=== PATIENT | male | born 1950 | race Caucasian/White ===

== ENCOUNTER → 2018-10-08 | Outpatient (CLI) | payer MEDICARE ==
[~2018-10-08] MED LIST: ATOR-2 PO; INSU100V5 SQ-INSULIN; INSU100V8 SQ; LISI-170 PO; METF500T17 PO; OMEP20TA9 PO; ONDA4TAB7 PO
== END | disposition home or self-care (01) ==
LOC: PETCFH 08:46
PROVIDERS: ATTEND Internal Medicine Hematology & Oncology
DX: C25.0 Malignant neoplasm of head of pancreas (principal); R91.1 Solitary pulmonary nodule; K86.9 Disease of pancreas, unspecified; M47.816 Spondylosis without myelopathy or radiculopathy, lumbar region
CPT/HCPCS: 78815; A9552

== ENCOUNTER 2018-10-21 08:03 | Day surgery (SDC) | payer MEDICARE ==
[~2018-10-21] VITALS: Ht 152.4 cm; Wt 47.3 kg
[2018-10-21] MEDS ORDERED: LACTATED RINGERS 1,000 ML IV SCH (08:40)
[2018-10-21] MEDS ORDERED: MULT-658 PO (08:44)
[2018-10-21] MEDS ORDERED: INSU100I13 PO (08:44)
[2018-10-21] MEDS ORDERED: CYAN10005 PO (08:44)
[2018-10-21 08:46] VITALS: BP 144/73
[2018-10-21 08:57] VITALS: BP 144/73
[2018-10-21] MEDS ORDERED: SUCCINYLCHOLINE 20 MG/ML, 10ML ONE (12:35)
[2018-10-21] MEDS ORDERED: PROPOFOL 10 MG/ML, 20ML ONE (12:35)
[2018-10-21] MEDS ORDERED: ROCURONIUM 10 MG/ML,10ML ONE (12:35)
[2018-10-21] MEDS ORDERED: OMNIPAQUE 350 MG/ML, 50 ML BOTTLE ONE (13:23)
== END 2018-10-21 14:30 | disposition home or self-care (01) ==
LOC: OUT 08:03
PROVIDERS: ATTEND Internal Medicine
DX: K83.1 Obstruction of bile duct (principal); C25.9 Malignant neoplasm of pancreas, unspecified; E11.9 Type 2 diabetes mellitus without complications; I10 Essential (primary) hypertension; E78.5 Hyperlipidemia, unspecified; K21.9 Gastro-esophageal reflux disease without esophagitis; Z79.84 Long term (current) use of oral hypoglycemic drugs
CPT/HCPCS: 43264; 43276; 74328; 82962; 93005; C1725; C1874; J0330; J2704; J7120; Q9967

== ENCOUNTER 2018-10-22 08:56 | Day surgery (SDC) | payer MEDICARE ==
[~2018-10-22] VITALS: Ht 152.4 cm; Wt 47.6 kg
[~2018-10-22 08:56] MED LIST changes: +CYAN10005 PO; +FENTANYL PF 100 MCG/2ML ONE; +INSU100I13 PO; +MULT-658 PO
[2018-10-22] MEDS ORDERED: LACTATED RINGERS 1,000 ML IV SCH (09:39)
[2018-10-22 09:44] VITALS: BP 145/73
[2018-10-22] MEDS ORDERED: MIDAZOLAM 1 MG/ML, 2ML ONE (10:01)
[2018-10-22] MEDS ORDERED: FENTANYL PF 250 MCG/5ML ONE (10:01)
[2018-10-22] MEDS ORDERED: SODIUM CHLORIDE 0.9% PF 10ML ONE (10:02)
[2018-10-22] MEDS ORDERED: CEFAZOLIN 1,000 MG ONE ×2 (10:02)
[2018-10-22] MEDS ORDERED: PROPOFOL 10 MG/ML, 20ML ONE (10:03)
[2018-10-22] MEDS ORDERED: BUPIVACAINE/PF-EPI 0.5% 1:200K ONE (10:35)
[2018-10-22] MEDS ORDERED: HEPARIN 5,000 UNITS/ML, 1ML ONE (10:35)
[2018-10-22] MEDS ORDERED: HEPARIN 1,000 UNITS/ML, 10ML ONE (10:35)
[2018-10-22] MEDS ORDERED: HYDROmorphone 2 MG/ML, 1ML IVPush PRN (11:00)
[2018-10-22] MEDS ORDERED: PROMETHAZINE 12.5 MG SUPP PR PRN (11:00)
[2018-10-22] MEDS ORDERED: FENTANYL PF 100 MCG/2ML IV PRN (11:00)
[2018-10-22] MEDS ORDERED: MEPERIDINE/PF 25MG/0.5ML IVPush PRN (11:00)
[2018-10-22] MEDS ORDERED: ONDANSETRON 2MG/ML, 2ML IV PRN (11:00)
[2018-10-22] MEDS ORDERED: PROMETHAZINE 25 MG SUPP PR PRN (11:00)
[2018-10-22] MEDS ORDERED: PROMETHAZINE 25 MG/ML, 1ML IV PRN (11:00)
[2018-10-22] MEDS ORDERED: ACETAMINOPHEN 325 MG TABLET PO PRN (11:00)
[2018-10-22] MEDS ORDERED: hydrALAzine 20 MG/ML, 1ML IV PRN (11:00)
[2018-10-22] MEDS ORDERED: MORPHINE SULFATE 4 MG/ML, 1ML IVPush PRN (11:00)
[2018-10-22] MEDS ORDERED: PROMETHAZINE 25 MG/ML, 1ML IM PRN ×2 (11:00)
[2018-10-22] MEDS ORDERED: LABETALOL 5MG/ML, 20ML IV PRN (11:00)
[2018-10-22] MEDS ORDERED: ONDANSETRON ODT 8 MG PO PRN (11:00)
[2018-10-22] MEDS ORDERED: OXYcodone 5 MG/5 ML ORAL.SOL UDC PO PRN (11:00)
[2018-10-22] MEDS ORDERED: PHENYLEPHRINE 10 MG/ML ONE (11:28)
== END 2018-10-22 14:20 | disposition home or self-care (01) ==
LOC: OUT 08:56
PROVIDERS: ATTEND Surgery
DX: Z45.2 Encounter for adjustment and management of vascular access device (principal); C25.9 Malignant neoplasm of pancreas, unspecified; I10 Essential (primary) hypertension; E11.9 Type 2 diabetes mellitus without complications; K21.9 Gastro-esophageal reflux disease without esophagitis; E78.5 Hyperlipidemia, unspecified; Z79.4 Long term (current) use of insulin; Z79.899 Other long term (current) drug therapy; Z72.89 Other problems related to lifestyle; Z80.3 Family history of malignant neoplasm of breast
CPT/HCPCS: 36561; 77001; 82962; C1788; J0690; J1644; J2250; J2370; J2704; J3010

== ENCOUNTER 2018-11-12 08:00 | Inpatient (IN) | payer MEDICARE ==
[~2018-11-12] VITALS: Ht 152.4 cm; Wt 46.7 kg
[~2018-11-12 08:00] MED LIST changes: -FENTANYL PF 100 MCG/2ML ONE; -INSU100I13 PO; +INSU100I13 SC
[2018-11-13 09:29] VITALS: BP 137/71
[2018-11-13] MEDS ORDERED: ACETAMINOPHEN 325 MG TABLET PO PRN (09:30)
[2018-11-13] MEDS ORDERED: PLEASE ENTER HEIGHT MC SCH (09:30)
[2018-11-13 09:32] LABS: BASOPHILS # (AUTO) 0.01 x10^3/uL (0-0.1); BASOPHILS % (AUTO) 0 % (0-1); EOSINOPHILS # (AUTO) 0.04 x10^3/uL (0-0.4); EOSINOPHILS % (AUTO) 1 % (1-7); LYMPHOCYTES # (AUTO) 1.22 x10^3/uL (1-3.4); LYMPHOCYTES % (AUTO) 18 % (22-44); MD NO; MEAN CORPUSCULAR HEMOGLOBIN 29.7 pg (27.5-34.5); MEAN CORPUSCULAR HGB CONC 31.9 g/dL (33.2-36.2); MEAN PLATELET VOLUME 7.6 fL (7.4-10.4); MONOCYTES # (AUTO) 0.54 x10^3/uL (0.2-0.8); MONOCYTES % (AUTO) 8 % (2-9); NEUTROPHILS # (AUTO) 4.88 x10^3/uL (1.8-6.8); NEUTROPHILS % (AUTO) 73 % (42-75); PLATELET COUNT 228 x10^3/uL (130-400); RED BLOOD COUNT 4.31 x10^6/uL (4.38-5.82); RED CELL DISTRIBUTION WIDTH 13.7 % (9.4-14.8)
[2018-11-13 09:42] LABS: ALANINE AMINOTRANSFERASE 34 U/L (12-78); ALBUMIN 3.1 g/dL (3.4-5.0); ANION GAP 2 mmol/L (5-15); CALCIUM 8.4 mg/dL (8.5-10.1); CHLORIDE 102 mmol/L (98-107)
[2018-11-13 09:45] LABS: ALKALINE PHOSPHATASE 93 U/L (45-117); BILIRUBIN,TOTAL 0.6 mg/dL (0.2-1.0); TOTAL PROTEIN 6.1 g/dL (6.4-8.2)
[2018-11-13] MEDS ORDERED: ONDANSETRON 16 MG, DEXAMETHASONE 10 MG in SODIUM CHLORIDE 0.9% 50 ML IVPB ONE (10:30)
[2018-11-13] MEDS ORDERED: PROCHLORPERAZINE 10MG TABLET PO PRN (10:30)
[2018-11-13] MEDS ORDERED: DEXTROSE 5% IVPB ONE (10:30)
[2018-11-13] MEDS ORDERED: DEXAMETHASONE IVPB ONE (10:30)
[2018-11-13] MEDS ORDERED: PROCHLORPERAZINE 5 MG/ML, 2ML IV PRN (10:30)
[2018-11-13] MEDS ORDERED: FOSAPREPITANT 150 MG in SODIUM CHLORIDE 0.9% 145 ML IV ONE (10:30)
[2018-11-13] MEDS ORDERED: ONDANSETRON IVPB ONE (10:30)
[2018-11-13] MEDS ORDERED: INSULIN LISPRO 100 UNITS/ML, PEN SQ-INSULIN SCH (11:00)
[2018-11-13] MEDS ORDERED: DEXTROSE 5% IV ONE ×2 (11:00→13:00)
[2018-11-13] MEDS ORDERED: OXALIPLATIN IV ONE (11:00)
[2018-11-13] MEDS: INSULIN LISPRO 100 UNITS/ML, PEN SQ-INSULIN SCH ×3 (12:29→21:38)
[2018-11-13] MEDS ORDERED: ATROPINE 0.4 MG/ML, 1ML IVPush PRN (13:00)
[2018-11-13] MEDS ORDERED: IRINOTECAN HCL IV ONE (13:00)
[2018-11-13 13:04] VITALS: BP 114/65
[2018-11-13] MEDS ORDERED: SODIUM CHLORIDE 0.9% IV SCH (14:30)
[2018-11-13] MEDS ORDERED: FLUOROURACIL IV SCH (14:30)
[2018-11-13] MEDS: metFORMIN 500 MG TABLET PO SCH (16:37)
[2018-11-13 19:06] VITALS: BP 113/67
[2018-11-13] MEDS: INSULIN GLARGINE 100 UNITS/ML, PEN SQ-INSULIN SCH (21:39)
[2018-11-13] MEDS ORDERED: ONDANSETRON ODT 8 MG PO PRN (22:30)
[2018-11-13] MEDS ORDERED: ONDANSETRON 2MG/ML, 2ML IV PRN (22:30)
[2018-11-14 01:20] VITALS: BP 152/67
[2018-11-14 06:59] VITALS: BP 112/63
[2018-11-14] MEDS: metFORMIN 500 MG TABLET PO SCH ×2 (07:46→16:38)
[2018-11-14] MEDS: INSULIN LISPRO 100 UNITS/ML, PEN SQ-INSULIN SCH ×4 (07:46→21:22)
[2018-11-14 12:59] VITALS: BP 117/58
[2018-11-14] MEDS ORDERED: SODIUM CHLORIDE 0.9% IV ONE (16:00)
[2018-11-14] MEDS ORDERED: FLUOROURACIL IV ONE (16:00)
[2018-11-14 20:06] VITALS: BP 128/69
[2018-11-14] MEDS: INSULIN GLARGINE 100 UNITS/ML, PEN SQ-INSULIN SCH (21:22)
[2018-11-15 01:35] VITALS: BP 126/65
[2018-11-15 06:43] VITALS: BP 127/61
[2018-11-15] MEDS: INSULIN LISPRO 100 UNITS/ML, PEN SQ-INSULIN SCH ×3 (07:00→16:22)
[2018-11-15] MEDS ORDERED: PROC10TA78 PO (08:29)
[2018-11-15] MEDS ORDERED: ONDA8TAB9 PO (08:43)
[2018-11-15] MEDS: metFORMIN 500 MG TABLET PO SCH ×2 (08:48→16:26)
[2018-11-15 13:15] VITALS: BP 115/55
== END 2018-11-15 18:48 | disposition home or self-care (01) | DRG 847 ==
LOC: 3NE 11-13 08:36 → 3NW 11-13 09:30
PROVIDERS: ADMIT Internal Medicine Hematology & Oncology; ATTEND Internal Medicine Hematology & Oncology
DX: Z51.11 Encounter for antineoplastic chemotherapy (principal); C25.9 Malignant neoplasm of pancreas, unspecified; E11.65 Type 2 diabetes mellitus with hyperglycemia; I10 Essential (primary) hypertension; K59.00 Constipation, unspecified; Z79.84 Long term (current) use of oral hypoglycemic drugs; Z80.3 Family history of malignant neoplasm of breast; Z85.07 Personal history of malignant neoplasm of pancreas
CPT/HCPCS: 36415; 80053; 82947; 82962; 85025; G0378; J1100; J1453; J2405; J7060; J9206; J1815; J7030; J9190; J9263

== ENCOUNTER 2018-11-27 08:00 | Inpatient (IN) | payer MEDICARE ==
[~2018-11-27] VITALS: Ht 144.8 cm; Wt 46.6 kg
[~2018-11-27 08:00] MED LIST changes: +ONDA8TAB9 PO; +PROC10TA78 PO
[2018-11-27 09:20] VITALS: BP 133/56
[2018-11-27 09:36] LABS: BASOPHILS # (AUTO) 0.02 x10^3/uL (0-0.1); BASOPHILS % (AUTO) 1 % (0-1); EOSINOPHILS # (AUTO) 0.08 x10^3/uL (0-0.4); EOSINOPHILS % (AUTO) 2 % (1-7); LYMPHOCYTES # (AUTO) 1.17 x10^3/uL (1-3.4); LYMPHOCYTES % (AUTO) 36 % (22-44); MD NO; MEAN CORPUSCULAR HEMOGLOBIN 30.3 pg (27.5-34.5); MEAN CORPUSCULAR HGB CONC 33.5 g/dL (33.2-36.2); MEAN CORPUSCULAR VOLUME 90.2 fL (81-97); MEAN PLATELET VOLUME 7.4 fL (7.4-10.4); MONOCYTES # (AUTO) 0.52 x10^3/uL (0.2-0.8); MONOCYTES % (AUTO) 16 % (2-9); NEUTROPHILS # (AUTO) 1.47 x10^3/uL (1.8-6.8); NEUTROPHILS % (AUTO) 45 % (42-75); PLATELET COUNT 337 x10^3/uL (130-400); RED BLOOD COUNT 4.23 x10^6/uL (4.38-5.82); RED CELL DISTRIBUTION WIDTH 13.5 % (9.4-14.8)
[2018-11-27 09:48] LABS: ALANINE AMINOTRANSFERASE 183 U/L (12-78); ALBUMIN 2.8 g/dL (3.4-5.0); ANION GAP 5 mmol/L (5-15); CALCIUM 8.9 mg/dL (8.5-10.1); CHLORIDE 96 mmol/L (98-107); CREATININE 0.81 mg/dL (0.7-1.3)
[2018-11-27 09:51] LABS: ALKALINE PHOSPHATASE 832 U/L (45-117); BILIRUBIN,TOTAL 1.1 mg/dL (0.2-1.0)
[2018-11-27] MEDS ORDERED: LIDOCAINE/PRILOCAINE CRM W/TEG 5GM TP ONE (10:00)
[2018-11-27] MEDS ORDERED: DEXTROSE 50%, 50ML SYRINGE IVPush PRN (10:00)
[2018-11-27] MEDS ORDERED: DEXTROSE 4 GM TAB.CHEW PO PRN (10:00)
[2018-11-27] MEDS ORDERED: GLUCAGON 1 MG IM PRN (10:00)
[2018-11-27] MEDS ORDERED: ATROPINE 0.4 MG/ML, 1ML IVPush PRN (11:00)
[2018-11-27] MEDS ORDERED: INSULIN REGULAR, HUMAN 100 UNIT/ML 3ML VIAL LOW DOSE SS SQ-INSULIN SCH (11:00)
[2018-11-27] MEDS: INSULIN REGULAR 100 UNITS/ML, 3ML VIAL SQ-INSULIN SCH ×3 (11:19→20:06)
[2018-11-27] MEDS: SODIUM CHLORIDE 0.9% 1,000 ML IV SCH (11:20)
[2018-11-27] MEDS ORDERED: DEXTROSE 5% IVPB ONE (11:30)
[2018-11-27] MEDS ORDERED: FOSAPREPITANT 150 MG in SODIUM CHLORIDE 0.9% 145 ML IV ONE (11:30)
[2018-11-27] MEDS ORDERED: PROCHLORPERAZINE 5 MG/ML, 2ML IV PRN (11:30)
[2018-11-27] MEDS ORDERED: ONDANSETRON IVPB ONE (11:30)
[2018-11-27] MEDS ORDERED: DEXAMETHASONE IVPB ONE (11:30)
[2018-11-27] MEDS ORDERED: PROCHLORPERAZINE 10MG TABLET PO PRN (11:30)
[2018-11-27] MEDS ORDERED: OXALIPLATIN IV ONE ×2 (12:00)
[2018-11-27] MEDS ORDERED: DEXTROSE 5% IV ONE ×4 (12:00→14:30)
[2018-11-27 14:13] VITALS: BP 108/66
[2018-11-27] MEDS ORDERED: IRINOTECAN HCL IV ONE ×2 (14:30)
[2018-11-27] MEDS: metFORMIN 500 MG TABLET PO SCH (15:54)
[2018-11-27] MEDS ORDERED: FLUOROURACIL IV SCH (16:30)
[2018-11-27] MEDS ORDERED: SODIUM CHLORIDE 0.9% IV SCH (16:30)
[2018-11-27] MEDS: FLUOROURACIL IV SCH (16:58)
[2018-11-27] MEDS: SODIUM CHLORIDE 0.9% IV SCH (16:58)
[2018-11-27 18:54] VITALS: BP 116/62
[2018-11-27] MEDS: INSULIN GLARGINE 100 UNITS/ML, PEN SQ-INSULIN SCH (20:07)
[2018-11-27] MEDS: SODIUM CHLORIDE FLUSH 10ML SYR IVF SCH ×2 (20:07→20:23)
[2018-11-27] MEDS ORDERED: ONDANSETRON ODT 8 MG PO PRN (23:30)
[2018-11-27] MEDS ORDERED: ONDANSETRON 2MG/ML, 2ML IV PRN (23:30)
[2018-11-28 02:00] VITALS: BP 148/61
[2018-11-28] MEDS: SODIUM CHLORIDE 0.9% 1,000 ML IV SCH ×2 (04:45→20:44)
[2018-11-28 06:44] VITALS: BP 118/49
[2018-11-28] MEDS: INSULIN REGULAR 100 UNITS/ML, 3ML VIAL SQ-INSULIN SCH ×4 (07:22→20:46)
[2018-11-28] MEDS: metFORMIN 500 MG TABLET PO SCH ×2 (07:22→16:17)
[2018-11-28 12:59] VITALS: BP 110/56
[2018-11-28] MEDS: SODIUM CHLORIDE 0.9% IV SCH (16:30)
[2018-11-28] MEDS: FLUOROURACIL IV SCH (16:30)
[2018-11-28 19:06] VITALS: BP 93/49
[2018-11-28] MEDS: INSULIN GLARGINE 100 UNITS/ML, PEN SQ-INSULIN SCH (20:45)
[2018-11-28] MEDS: SODIUM CHLORIDE FLUSH 10ML SYR IVF SCH (20:46)
[2018-11-28 20:49] VITALS: BP 117/57
[2018-11-29 02:18] VITALS: BP 101/50
[2018-11-29 05:29] LABS: ALBUMIN 1.6 g/dL (3.4-5.0); BASOPHILS # (AUTO) 0.01 x10^3/uL (0-0.1); BASOPHILS % (AUTO) 0 % (0-1); EOSINOPHILS # (AUTO) 0.01 x10^3/uL (0-0.4); EOSINOPHILS % (AUTO) 0 % (1-7); LYMPHOCYTES # (AUTO) 1.54 x10^3/uL (1-3.4); LYMPHOCYTES % (AUTO) 32 % (22-44); MD NO; MEAN CORPUSCULAR HEMOGLOBIN 31.2 pg (27.5-34.5); MEAN CORPUSCULAR HGB CONC 33.8 g/dL (33.2-36.2); MEAN CORPUSCULAR VOLUME 92.2 fL (81-97); MEAN PLATELET VOLUME 7.5 fL (7.4-10.4); MONOCYTES # (AUTO) 0.35 x10^3/uL (0.2-0.8); MONOCYTES % (AUTO) 7 % (2-9); NEUTROPHILS # (AUTO) 2.85 x10^3/uL (1.8-6.8); NEUTROPHILS % (AUTO) 60 % (42-75); PLATELET COUNT 324 x10^3/uL (130-400); RED BLOOD COUNT 3.42 x10^6/uL (4.38-5.82); RED CELL DISTRIBUTION WIDTH 13.6 % (9.4-14.8)
[2018-11-29 05:32] LABS: ALANINE AMINOTRANSFERASE 77 U/L (12-78); ALKALINE PHOSPHATASE 385 U/L (45-117); BILIRUBIN,TOTAL 0.3 mg/dL (0.2-1.0); CREATININE 0.32 mg/dL (0.7-1.3)
[2018-11-29 05:44] LABS: ANION GAP 7 mmol/L (5-15)
[2018-11-29 05:46] LABS: CHLORIDE 118 mmol/L (98-107)
[2018-11-29] MEDS: INSULIN REGULAR 100 UNITS/ML, 3ML VIAL SQ-INSULIN SCH ×3 (07:28→16:34)
[2018-11-29 08:00] VITALS: BP 125/70
[2018-11-29 08:32] LABS: ALBUMIN 2.1 g/dL (3.4-5.0); ANION GAP 4 mmol/L (5-15); CALCIUM 8.1 mg/dL (8.5-10.1); CHLORIDE 107 mmol/L (98-107)
[2018-11-29 08:36] LABS: ALANINE AMINOTRANSFERASE 108 U/L (12-78); ALKALINE PHOSPHATASE 524 U/L (45-117); BILIRUBIN,TOTAL 0.2 mg/dL (0.2-1.0); CREATININE 0.62 mg/dL (0.7-1.3); TOTAL PROTEIN 5.3 g/dL (6.4-8.2)
[2018-11-29] MEDS ORDERED: POTASSIUM CHLORIDE 10 MEQ in SODIUM CHLORIDE 0.9% 100 ML IV SCH (09:00)
[2018-11-29] MEDS: SODIUM CHLORIDE FLUSH 10ML SYR IVF SCH (10:12)
[2018-11-29] MEDS: metFORMIN 500 MG TABLET PO SCH ×2 (10:12→17:22)
[2018-11-29] MEDS: SODIUM CHLORIDE 0.9% 1,000 ML IV SCH (12:59)
[2018-11-29 13:15] VITALS: BP 110/53
== END 2018-11-29 18:00 | disposition home or self-care (01) | DRG 846 ==
LOC: 3NW 08:32
PROVIDERS: ADMIT Internal Medicine Hematology & Oncology; ATTEND Internal Medicine Hematology & Oncology
DX: Z51.11 Encounter for antineoplastic chemotherapy (principal); E43 Unspecified severe protein-calorie malnutrition; C25.9 Malignant neoplasm of pancreas, unspecified; E87.0 Hyperosmolality and hypernatremia; E87.1 Hypo-osmolality and hyponatremia; I10 Essential (primary) hypertension; E87.6 Hypokalemia; E11.65 Type 2 diabetes mellitus with hyperglycemia; Z92.21 Personal history of antineoplastic chemotherapy
CPT/HCPCS: 36415; 80053; 82962; 83735; 85025; G0378; J1100; J1453; J2405; J7060; J9206; J7030; J9190; J9263

== ENCOUNTER 2019-03-30 12:49 | Inpatient (IN) | payer MEDICARE, MEDICAID ==
[~2019-03-30] VITALS: Ht 152.4 cm; Wt 43.2 kg
[~2019-03-30 12:49] MED LIST changes: +CYAN-27 PO; -CYAN10005 PO
[2019-03-30] MEDS ORDERED: SODIUM CHLORIDE FLUSH 10ML SYR IVF ONE (13:30)
--- NOTE | 2019-03-30 13:58 | NUR ---
Pt to room from lobby.
--- NOTE | 2019-03-30 14:09 | NUR ---
PT TO ED FOR EPIGASTRIC PAIN, N/V AND BLOATING X AT LEAST 2 WEEKS, WORSE OVER LAST WEEK. PT CURRENTLY BEING REATED FOR PANCREATIC CA. LAST CHEMO 1 MONTH AGO. PT STATES WAS ALBE TO EAT A SMALL BREAKFAST WITHOUT VOMITITNG TODAY. PT DENIES FEVER AND CHILLS. PT STATES IT "FEELS LIKE FOOD GET STUCK AND COMES RIGHT BACK UP." PT CONNECTED TO MONITORS. VSS. PIT ORDERS RECEIVED. XR COMPLETE.
[2019-03-30] MEDS ORDERED: POTASSIUM CHLORIDE PO (14:49)
[2019-03-30] MEDS ORDERED: INSU100C5 SQ-INSULIN (14:50)
[2019-03-30] MEDS ORDERED: OMEP-110 PO (14:50)
[2019-03-30] MEDS ORDERED: INSU100I32 INJ (14:51)
--- NOTE | 2019-03-30 14:51 | NUR ---
ASSUMED CARE OF PATIENT.
[2019-03-30 14:59] LABS: BASOPHILS # (AUTO) 0.01 x10^3/uL (0-0.1); BASOPHILS % (AUTO) 0 % (0-1); EOSINOPHILS # (AUTO) 0.02 x10^3/uL (0-0.4); EOSINOPHILS % (AUTO) 0 % (1-7); LYMPHOCYTES # (AUTO) 1.43 x10^3/uL (1-3.4); LYMPHOCYTES % (AUTO) 27 % (22-44); MD NO; MEAN CORPUSCULAR HEMOGLOBIN 31.8 pg (27.5-34.5); MEAN CORPUSCULAR HGB CONC 33.4 g/dL (33.2-36.2); MEAN CORPUSCULAR VOLUME 95.4 fL (81-97); MEAN PLATELET VOLUME 7.4 fL (7.4-10.4); MONOCYTES % (AUTO) 13 % (2-9); NEUTROPHILS # (AUTO) 3.19 x10^3/uL (1.8-6.8); NEUTROPHILS % (AUTO) 60 % (42-75); PLATELET COUNT 266 x10^3/uL (130-400)
[2019-03-30 15:08] LABS: INTERNATIONAL NORMALIZED RATIO 1.05 (0.93-1.1)
[2019-03-30 15:10] LABS: ALANINE AMINOTRANSFERASE 35 U/L (12-78); ALBUMIN 2.9 g/dL (3.4-5.0); ANION GAP 5 mmol/L (5-15); CALCIUM 8.4 mg/dL (8.5-10.1); CHLORIDE 107 mmol/L (98-107); CREATININE 0.57 mg/dL (0.7-1.3)
[2019-03-30 15:13] LABS: ALKALINE PHOSPHATASE 232 U/L (45-117); BILIRUBIN,TOTAL 0.3 mg/dL (0.2-1.0); TOTAL PROTEIN 6.2 g/dL (6.4-8.2)
--- NOTE | 2019-03-30 15:53 | NUR ---
pt resting in room. regular resp. no acute distress noted. vs stable. call light in place. will continue to monitor.
--- NOTE | 2019-03-30 16:27 | NUR ---
PT WENT TO CT
[2019-03-30] MEDS ORDERED: OMNIPAQUE 350 MG/ML, 100ML BOTTLE ONE (16:46)
[2019-03-30] MEDS ORDERED: ONDANSETRON 2MG/ML, 2ML ONE (17:00)
[2019-03-30] MEDS ORDERED: ONDANSETRON 2MG/ML, 2ML IVPush ONE (17:00)
[2019-03-30] MEDS ORDERED: SODIUM CHLORIDE 0.9% 1,000 ML IV ONE (17:36)
--- NOTE | 2019-03-30 17:56 | NUR ---
NG PLACED. DR VALERO IN THE ROOM FOR PLACEMENT. 700 MLS OF BROWN OUTPUT. VS STABLE. FAMILY AT BEDSIDE. WILL CONTINUE TO MONITOR.
[2019-03-30] MEDS ORDERED: SODIUM CHLORIDE FLUSH 10ML SYR IVF PRN (18:00)
[2019-03-30] MEDS ORDERED: ONDANSETRON 2MG/ML, 2ML IVPush PRN ×2 (18:00→19:30)
[2019-03-30] MEDS ORDERED: MORPHINE SULFATE 4 MG/ML, 1ML IVPush PRN (18:00)
[2019-03-30] MEDS ORDERED: SODIUM CHLORIDE 0.9% 1,000 ML IV SCH (19:25)
[2019-03-30] MEDS ORDERED: LIDODERM 5% PATCH TD PRN (19:30)
[2019-03-30] MEDS ORDERED: ENALAPRILAT 1.25 MG/ML, 2ML IVPush PRN (19:30)
[2019-03-30] MEDS ORDERED: BISACODYL 10 MG SUPP PR PRN (19:30)
[2019-03-30 19:37] VITALS: BP 138/68
[2019-03-30] MEDS: INSULIN LISPRO 100 UNITS/ML, PEN SQ-INSULIN SCH (21:00)
[2019-03-31 00:46] VITALS: BP 153/75
[2019-03-31] MEDS: INSULIN LISPRO 100 UNITS/ML, PEN SQ-INSULIN SCH ×4 (07:00→21:27)
[2019-03-31 08:12] VITALS: BP 127/68
[2019-03-31] MEDS ORDERED: DEXTROSE 50%, 50ML SYRINGE IVPush PRN (08:30)
[2019-03-31] MEDS ORDERED: GLUCAGON 1 MG IM PRN (08:30)
[2019-03-31] MEDS ORDERED: DEXTROSE 4 GM TAB.CHEW PO PRN (08:30)
[2019-03-31] MEDS: PANTOPRAZOLE 40 MG IV IVPush SCH (08:42)
[2019-03-31] MEDS: SODIUM CHLORIDE FLUSH 10ML SYR IVF SCH ×2 (08:48→21:29)
[2019-03-31 09:21] LABS: BASOPHILS # (AUTO) 0.03 x10^3/uL (0-0.1); BASOPHILS % (AUTO) 1 % (0-1); EOSINOPHILS # (AUTO) 0.03 x10^3/uL (0-0.4); EOSINOPHILS % (AUTO) 1 % (1-7); LYMPHOCYTES # (AUTO) 1.34 x10^3/uL (1-3.4); LYMPHOCYTES % (AUTO) 23 % (22-44); MD NO; MEAN CORPUSCULAR HEMOGLOBIN 32.2 pg (27.5-34.5); MEAN CORPUSCULAR HGB CONC 33.4 g/dL (33.2-36.2); MEAN CORPUSCULAR VOLUME 96.4 fL (81-97); MEAN PLATELET VOLUME 7.6 fL (7.4-10.4); MONOCYTES # (AUTO) 0.45 x10^3/uL (0.2-0.8); MONOCYTES % (AUTO) 8 % (2-9); NEUTROPHILS # (AUTO) 3.92 x10^3/uL (1.8-6.8); NEUTROPHILS % (AUTO) 68 % (42-75); PLATELET COUNT 244 x10^3/uL (130-400); RED BLOOD COUNT 3.86 x10^6/uL (4.38-5.82); RED CELL DISTRIBUTION WIDTH 15.7 % (9.4-14.8)
[2019-03-31 09:31] LABS: ALANINE AMINOTRANSFERASE 34 U/L (12-78); ALBUMIN 2.9 g/dL (3.4-5.0); ANION GAP 7 mmol/L (5-15); CALCIUM 8.1 mg/dL (8.5-10.1); CHLORIDE 108 mmol/L (98-107); CREATININE 0.57 mg/dL (0.7-1.3)
[2019-03-31 09:33] LABS: ALKALINE PHOSPHATASE 214 U/L (45-117); BILIRUBIN,TOTAL 0.3 mg/dL (0.2-1.0)
[2019-03-31] MEDS ORDERED: MAGNESIUM SULFATE PMX 2GM/50ML 50 ML IV ONE (10:30)
[2019-03-31 11:46] VITALS: BP 141/62
[2019-03-31] MEDS: D5%-0.45NACL+KCL 20MEQ 1,000 ML IV SCH (11:48)
[2019-03-31 11:59] VITALS: BP 128/65
[2019-03-31 14:20] VITALS: BP 159/81
[2019-03-31] MEDS ORDERED: ACETAMINOPHEN 650 MG SUPP PR PRN (15:00)
[2019-03-31 17:38] LABS: MICROSCOPIC NOT IND
[2019-03-31 17:47] LABS: CULTURE INDICATED? NO
[2019-03-31 20:19] VITALS: BP 109/54
[2019-04-01] MEDS: D5%-0.45NACL+KCL 20MEQ 1,000 ML IV SCH ×2 (00:08→09:54)
[2019-04-01 02:00] VITALS: BP 101/50
[2019-04-01 05:38] LABS: ALBUMIN 2.3 g/dL (3.4-5.0); ANION GAP 5 mmol/L (5-15); CALCIUM 7.9 mg/dL (8.5-10.1); CHLORIDE 106 mmol/L (98-107)
[2019-04-01 05:41] LABS: BASOPHILS # (AUTO) 0.03 x10^3/uL (0-0.1); BASOPHILS % (AUTO) 0 % (0-1); EOSINOPHILS # (AUTO) 0.09 x10^3/uL (0-0.4); EOSINOPHILS % (AUTO) 1 % (1-7); LYMPHOCYTES # (AUTO) 1.22 x10^3/uL (1-3.4); LYMPHOCYTES % (AUTO) 14 % (22-44); MD NO; MEAN CORPUSCULAR HEMOGLOBIN 32.6 pg (27.5-34.5); MEAN CORPUSCULAR HGB CONC 33.8 g/dL (33.2-36.2); MEAN CORPUSCULAR VOLUME 96.5 fL (81-97); MEAN PLATELET VOLUME 7.7 fL (7.4-10.4); MONOCYTES # (AUTO) 0.54 x10^3/uL (0.2-0.8); MONOCYTES % (AUTO) 6 % (2-9); NEUTROPHILS % (AUTO) 79 % (42-75); PLATELET COUNT 232 x10^3/uL (130-400); RED BLOOD COUNT 3.49 x10^6/uL (4.38-5.82); RED CELL DISTRIBUTION WIDTH 15.1 % (9.4-14.8)
[2019-04-01 05:42] LABS: ALANINE AMINOTRANSFERASE 22 U/L (12-78); ALKALINE PHOSPHATASE 181 U/L (45-117); BILIRUBIN,TOTAL 0.9 mg/dL (0.2-1.0); CREATININE 0.52 mg/dL (0.7-1.3); TOTAL PROTEIN 5.4 g/dL (6.4-8.2)
[2019-04-01 07:48] VITALS: BP 113/61
[2019-04-01] MEDS: PANTOPRAZOLE 40 MG IV IVPush SCH (08:19)
[2019-04-01] MEDS: SODIUM CHLORIDE FLUSH 10ML SYR IVF SCH ×2 (08:19→20:21)
[2019-04-01] MEDS: INSULIN LISPRO 100 UNITS/ML, PEN SQ-INSULIN SCH ×4 (08:19→20:33)
[2019-04-01 13:29] VITALS: BP 126/60
[2019-04-01] MEDS ORDERED: NS + 20MEQ KCL 1,000 ML IV SCH (16:00)
[2019-04-01 18:42] VITALS: BP 116/56
[2019-04-01] MEDS: D5%-0.9% NACL+KCL 20MEQ 1,000 ML IV SCH (21:47)
[2019-04-02 03:01] VITALS: BP 123/66
[2019-04-02 04:44] LABS: BASOPHILS # (AUTO) 0.01 x10^3/uL (0-0.1); BASOPHILS % (AUTO) 0 % (0-1); EOSINOPHILS # (AUTO) 0.07 x10^3/uL (0-0.4); EOSINOPHILS % (AUTO) 1 % (1-7); LYMPHOCYTES # (AUTO) 1.06 x10^3/uL (1-3.4); LYMPHOCYTES % (AUTO) 18 % (22-44); MD NO; MEAN CORPUSCULAR HEMOGLOBIN 32.5 pg (27.5-34.5); MEAN CORPUSCULAR HGB CONC 33.2 g/dL (33.2-36.2); MEAN PLATELET VOLUME 7.7 fL (7.4-10.4); MONOCYTES # (AUTO) 0.57 x10^3/uL (0.2-0.8); MONOCYTES % (AUTO) 10 % (2-9); NEUTROPHILS # (AUTO) 4.03 x10^3/uL (1.8-6.8); NEUTROPHILS % (AUTO) 70 % (42-75); PLATELET COUNT 237 x10^3/uL (130-400); RED BLOOD COUNT 3.47 x10^6/uL (4.38-5.82); RED CELL DISTRIBUTION WIDTH 15.1 % (9.4-14.8)
[2019-04-02 04:59] LABS: ALANINE AMINOTRANSFERASE 23 U/L (12-78); ALBUMIN 2.4 g/dL (3.4-5.0); ANION GAP 4 mmol/L (5-15); CALCIUM 8.1 mg/dL (8.5-10.1); CHLORIDE 110 mmol/L (98-107); CREATININE 0.57 mg/dL (0.7-1.3)
[2019-04-02 05:01] LABS: ALKALINE PHOSPHATASE 177 U/L (45-117); BILIRUBIN,TOTAL 0.4 mg/dL (0.2-1.0); TOTAL PROTEIN 5.6 g/dL (6.4-8.2)
[2019-04-02] MEDS: D5%-0.9% NACL+KCL 20MEQ 1,000 ML IV SCH ×2 (06:14→16:32)
[2019-04-02] MEDS: PANTOPRAZOLE 40 MG IV IVPush SCH (07:53)
[2019-04-02] MEDS: SODIUM CHLORIDE FLUSH 10ML SYR IVF SCH ×2 (07:54→20:51)
[2019-04-02] MEDS: INSULIN LISPRO 100 UNITS/ML, PEN SQ-INSULIN SCH ×4 (07:54→20:50)
[2019-04-02 08:41] VITALS: BP 114/51
[2019-04-02] MEDS ORDERED: D5%-0.45NACL+KCL 20MEQ 1,000 ML IV SCH (10:30)
[2019-04-02] MEDS ORDERED: FENTANYL PF 250 MCG/5ML ONE (10:46)
[2019-04-02] MEDS ORDERED: ONDANSETRON 2MG/ML, 2ML IV PRN (11:00)
[2019-04-02] MEDS ORDERED: MORPHINE SULFATE 4 MG/ML, 1ML IVPush PRN (11:00)
[2019-04-02] MEDS ORDERED: HYDROmorphone 2 MG/ML, 1ML IVPush PRN (11:00)
[2019-04-02] MEDS ORDERED: LABETALOL 5MG/ML, 20ML IV PRN (11:00)
[2019-04-02] MEDS ORDERED: hydrALAzine 20 MG/ML, 1ML IV PRN (11:00)
[2019-04-02] MEDS ORDERED: FENTANYL PF 100 MCG/2ML IV PRN (11:00)
[2019-04-02] MEDS ORDERED: MEPERIDINE/PF 25MG/ML,1ML IVPush PRN (11:00)
[2019-04-02] MEDS ORDERED: CEFAZOLIN 1,000 MG ONE (11:15)
[2019-04-02] MEDS ORDERED: NEOSTIGMINE 1 MG/ML, 10ML ONE (11:15)
[2019-04-02] MEDS ORDERED: PROPOFOL 10 MG/ML, 20ML ONE (11:15)
[2019-04-02] MEDS ORDERED: GLYCOPYRROLATE 0.2MG/1ML, 5ML ONE (11:15)
[2019-04-02] MEDS ORDERED: ROCURONIUM 10MG/ML,5ML ONE (11:15)
[2019-04-02] MEDS ORDERED: SUCCINYLCHOLINE 20 MG/ML, 10ML ONE (11:15)
[2019-04-02 13:13] VITALS: BP 137/45
[2019-04-02 14:49] LABS: % IRON SATURATION 14 % (20-55); IRON LEVEL 23 mcg/dL (65-175); TOTAL IRON BINDING CAPACITY 163 mcg/dL (250-450)
[2019-04-02 20:45] VITALS: BP 124/58
[2019-04-03 02:38] VITALS: BP 133/56
[2019-04-03] MEDS: D5%-0.9% NACL+KCL 20MEQ 1,000 ML IV SCH (04:37)
[2019-04-03 08:05] VITALS: BP 154/70
[2019-04-03 08:39] LABS: BASOPHILS # (AUTO) 0.01 x10^3/uL (0-0.1); BASOPHILS % (AUTO) 0 % (0-1); EOSINOPHILS # (AUTO) 0.03 x10^3/uL (0-0.4); EOSINOPHILS % (AUTO) 1 % (1-7); LYMPHOCYTES # (AUTO) 1.15 x10^3/uL (1-3.4); LYMPHOCYTES % (AUTO) 22 % (22-44); MD NO; MEAN CORPUSCULAR HEMOGLOBIN 31.6 pg (27.5-34.5); MEAN CORPUSCULAR HGB CONC 32.5 g/dL (33.2-36.2); MEAN CORPUSCULAR VOLUME 97.2 fL (81-97); MEAN PLATELET VOLUME 7.6 fL (7.4-10.4); MONOCYTES # (AUTO) 0.45 x10^3/uL (0.2-0.8); MONOCYTES % (AUTO) 9 % (2-9); NEUTROPHILS % (AUTO) 68 % (42-75); PLATELET COUNT 222 x10^3/uL (130-400); RED CELL DISTRIBUTION WIDTH 15.4 % (9.4-14.8)
[2019-04-03 08:55] LABS: ALBUMIN 2.4 g/dL (3.4-5.0); ANION GAP 6 mmol/L (5-15); CALCIUM 8.1 mg/dL (8.5-10.1); CHLORIDE 105 mmol/L (98-107)
[2019-04-03 09:00] LABS: ALANINE AMINOTRANSFERASE 20 U/L (12-78); ALKALINE PHOSPHATASE 175 U/L (45-117); BILIRUBIN,TOTAL 0.4 mg/dL (0.2-1.0); CREATININE 0.56 mg/dL (0.7-1.3); TOTAL PROTEIN 5.6 g/dL (6.4-8.2)
[2019-04-03] MEDS: SODIUM CHLORIDE FLUSH 10ML SYR IVF SCH (09:18)
[2019-04-03] MEDS: INSULIN LISPRO 100 UNITS/ML, PEN SQ-INSULIN SCH ×2 (09:19→13:47)
[2019-04-03] MEDS: PANTOPRAZOLE 40 MG IV IVPush SCH (09:24)
[2019-04-03] MEDS ORDERED: FLUMAZENIL 0.1 MG/1 ML, 5ML ONE (10:35)
[2019-04-03] MEDS ORDERED: MIDAZOLAM 1 MG/ML, 5ML ONE (10:35)
[2019-04-03] MEDS ORDERED: NALOXONE 1 MG/ML, 2ML ONE (10:35)
[2019-04-03] MEDS ORDERED: FENTANYL PF 100 MCG/2ML ONE (10:35)
[2019-04-03 13:09] VITALS: BP 173/71
[2019-04-03] MEDS ORDERED: PANT40TA5 PO (14:30)
== END 2019-04-03 16:30 | disposition home or self-care (01) | DRG 380 ==
LOC: ED 17:35 → EDIP 17:36 → ED 17:51 → 4NE 19:17 → 4NW 03-31 11:17 → DCLOUNGE 04-03 16:19
PROVIDERS: ADMIT Internal Medicine; ATTEND Internal Medicine
PROC: 0D9670Z Drainage of Stomach with Drainage Device, Via Natural or Artificial Opening (ICD-10-PCS; principal; 2019-03-30)
PROC: 0D798DZ Dilation of Duodenum with Intraluminal Device, Via Natural or Artificial Opening Endoscopic (ICD-10-PCS; 2019-04-02)
DX: K31.5 Obstruction of duodenum (principal); E43 Unspecified severe protein-calorie malnutrition; C25.9 Malignant neoplasm of pancreas, unspecified; Z68.1 Body mass index [BMI] 19.9 or less, adult; E78.5 Hyperlipidemia, unspecified; E11.9 Type 2 diabetes mellitus without complications; D64.9 Anemia, unspecified; E11.649 Type 2 diabetes mellitus with hypoglycemia without coma; E83.42 Hypomagnesemia; K31.1 Adult hypertrophic pyloric stenosis; K52.9 Noninfective gastroenteritis and colitis, unspecified; K21.9 Gastro-esophageal reflux disease without esophagitis; I10 Essential (primary) hypertension; Z79.4 Long term (current) use of insulin; Z80.3 Family history of malignant neoplasm of breast; Z79.899 Other long term (current) drug therapy
CPT/HCPCS: 36415; 47000; 74022; 74177; 74328; 76942; 80053; 81003; 82962; 83540; 83550; 83605; 83690; 83735; 84100; 84145; 85025; 85610; 96374; G0378; J0690; J2250; J2405; J2704; J2710; J3010; J3480; Q9967; A4648; C1769; C1874; C9113; J0330; J1815; J2310; J3475; J7030

== ENCOUNTER 2019-05-15 12:49 | Inpatient (IN) | payer MEDICARE, MEDICAID ==
[~2019-05-15] VITALS: Ht 162.6 cm; Wt 46.1 kg
[~2019-05-15 12:49] MED LIST changes: +INSU100C5 SQ-INSULIN; +INSU100I32 INJ; +OMEP-110 PO; +PANT40TA5 PO; +POTASSIUM CHLORIDE PO
--- NOTE | 2019-05-15 13:49 | NUR ---
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
--- NOTE | 2019-05-15 14:04 | NUR ---
PT TO XRAY.
[2019-05-15 14:17] LABS: MEAN CORPUSCULAR HEMOGLOBIN 31.7 pg (27.5-34.5); MEAN CORPUSCULAR HGB CONC 33.7 g/dL (33.2-36.2); MEAN CORPUSCULAR VOLUME 94.1 fL (81-97); MEAN PLATELET VOLUME 8.1 fL (7.4-10.4); PLATELET COUNT 327 x10^3/uL (130-400); RED BLOOD COUNT 4.53 x10^6/uL (4.38-5.82); RED CELL DISTRIBUTION WIDTH 14.9 % (9.4-14.8)
[2019-05-15 14:25] LABS: INTERNATIONAL NORMALIZED RATIO 0.9 (0.93-1.1); PROTHROMBIN TIME 9.5 Seconds (9.6-11.5)
[2019-05-15 14:28] LABS: ALANINE AMINOTRANSFERASE 313 U/L (12-78); ALBUMIN 2.6 g/dL (3.4-5.0); ANION GAP 7 mmol/L (5-15); CALCIUM 9.1 mg/dL (8.5-10.1); CHLORIDE 90 mmol/L (98-107); CREATININE 0.79 mg/dL (0.7-1.3)
[2019-05-15 14:41] LABS: ALKALINE PHOSPHATASE 1139 U/L (45-117); BILIRUBIN,TOTAL 8.6 mg/dL (0.2-1.0); TOTAL PROTEIN 7.5 g/dL (6.4-8.2)
[2019-05-15 15:14] LABS: MD YES
[2019-05-15 15:34] LABS: BAND#(MANUAL) 0.33 x10^3/uL; BANDS%(MANUAL) 5 % (0-7); LYMPH#(MANUAL) 0.92 x10^3/uL (1-3.4); LYMPHS% (MANUAL) 14 % (22-44); MONOS#(MANUAL) 0.26 x10^3/uL (0.3-2.7); MONOS% (MANUAL) 4 % (2-9); SEG#(MANUAL) 5.08 x10^3/uL (1.8-6.8); SEGS% (MANUAL) 77 % (42-75)
[2019-05-15 15:35] LABS: <PLATELET ESTIMATE> ADEQUATE; <PLT MORPHOLOGY> NORMAL PLT MORPH; <RBC MORPHOLOGY> NORMAL
[2019-05-15 15:38] LABS: MICROSCOPIC NOT IND
[2019-05-15 15:42] LABS: CULTURE INDICATED? NO
[2019-05-15] MEDS ORDERED: SODIUM CHLORIDE FLUSH 10ML SYR IVF PRN (16:00)
[2019-05-15] MEDS ORDERED: DEXTROSE 50%, 50ML SYRINGE IVPush PRN (16:30)
[2019-05-15] MEDS ORDERED: morphine SULFATE 10 MG/ML, 1ML IVPush PRN (16:30)
[2019-05-15] MEDS ORDERED: DEXTROSE 4 GM TAB.CHEW PO PRN (16:30)
[2019-05-15] MEDS ORDERED: ONDANSETRON ODT 4 MG PO PRN (16:30)
[2019-05-15] MEDS ORDERED: POLYETHYLENE GLYCOL 17 GM PACKET PO PRN (16:30)
[2019-05-15] MEDS ORDERED: DOCUSATE 100 MG CAPSULE PO PRN (16:30)
[2019-05-15] MEDS ORDERED: GLUCAGON 1 MG IM PRN (16:30)
[2019-05-15] MEDS ORDERED: ONDANSETRON 2MG/ML, 2ML IVPush PRN (16:30)
[2019-05-15] MEDS ORDERED: OMNIPAQUE 350 MG/ML, 100ML BOTTLE ONE (16:35)
[2019-05-15] MEDS: SODIUM CHLORIDE 0.9% 1,000 ML IV SCH (17:10)
[2019-05-15 17:33] VITALS: BP 169/80
[2019-05-15] MEDS: INSULIN LISPRO 100 UNITS/ML, PEN SQ-INSULIN SCH ×2 (18:08→20:01)
[2019-05-15 19:25] VITALS: BP 106/69
[2019-05-15] MEDS: SODIUM CHLORIDE FLUSH 10ML SYR IVF SCH (20:01)
[2019-05-16 01:24] VITALS: BP 138/74
[2019-05-16] MEDS: SODIUM CHLORIDE 0.9% 1,000 ML IV SCH ×3 (01:36→17:41)
[2019-05-16 04:47] LABS: MEAN CORPUSCULAR HEMOGLOBIN 31.8 pg (27.5-34.5); MEAN CORPUSCULAR HGB CONC 33.9 g/dL (33.2-36.2); MEAN CORPUSCULAR VOLUME 93.6 fL (81-97); MEAN PLATELET VOLUME 7.7 fL (7.4-10.4); PLATELET COUNT 324 x10^3/uL (130-400); RED BLOOD COUNT 3.89 x10^6/uL (4.38-5.82); RED CELL DISTRIBUTION WIDTH 15.1 % (9.4-14.8)
[2019-05-16 04:49] LABS: ALBUMIN 2.2 g/dL (3.4-5.0); ANION GAP 3 mmol/L (5-15); CALCIUM 8.5 mg/dL (8.5-10.1); CHLORIDE 100 mmol/L (98-107)
[2019-05-16 05:05] LABS: ALANINE AMINOTRANSFERASE 268 U/L (12-78); ALKALINE PHOSPHATASE 980 U/L (45-117); BILIRUBIN,TOTAL 8.6 mg/dL (0.2-1.0); CREATININE 0.52 mg/dL (0.7-1.3); TOTAL PROTEIN 6.3 g/dL (6.4-8.2)
[2019-05-16 05:54] LABS: MD YES
[2019-05-16 05:57] LABS: BAND#(MANUAL) 0.17 x10^3/uL; BANDS%(MANUAL) 2 % (0-7); LYMPH#(MANUAL) 1.48 x10^3/uL (1-3.4); LYMPHS% (MANUAL) 17 % (22-44); MONOS#(MANUAL) 0.26 x10^3/uL (0.3-2.7); MONOS% (MANUAL) 3 % (2-9); SEG#(MANUAL) 6.79 x10^3/uL (1.8-6.8); SEGS% (MANUAL) 78 % (42-75)
[2019-05-16 05:59] LABS: <RBC MORPHOLOGY> NORMAL
[2019-05-16 06:00] LABS: <PLATELET ESTIMATE> ADEQUATE; <PLT MORPHOLOGY> NORMAL PLT MORPH
[2019-05-16] MEDS: INSULIN LISPRO 100 UNITS/ML, PEN SQ-INSULIN SCH ×4 (07:00→20:55)
[2019-05-16 08:10] VITALS: BP 123/73
[2019-05-16] MEDS: INSULIN DEGLUDEC SQ SCH (09:00)
[2019-05-16] MEDS: PANTOPRAZOLE 40 MG IV IVPush SCH (10:03)
[2019-05-16] MEDS: SODIUM CHLORIDE FLUSH 10ML SYR IVF SCH ×2 (10:04→20:55)
[2019-05-16] MEDS ORDERED: D5%-0.45% NACL 1,000 ML IV SCH (13:00)
[2019-05-16] MEDS: ERTAPENEM 1 GM in SODIUM CHLORIDE 0.9% 50 ML IV SCH (13:58)
[2019-05-16 14:09] VITALS: BP 133/68
[2019-05-16 20:52] VITALS: BP_SYST 143; BP_SYST 145; BP_DIAS 71; BP_DIAS 73
[2019-05-17 02:12] VITALS: BP 154/74
[2019-05-17] MEDS: SODIUM CHLORIDE 0.9% 1,000 ML IV SCH ×2 (02:27→17:40)
[2019-05-17 04:20] LABS: MEAN CORPUSCULAR HEMOGLOBIN 31.6 pg (27.5-34.5); MEAN CORPUSCULAR HGB CONC 33.9 g/dL (33.2-36.2); MEAN PLATELET VOLUME 7.8 fL (7.4-10.4); PLATELET COUNT 306 x10^3/uL (130-400); RED BLOOD COUNT 3.62 x10^6/uL (4.38-5.82); RED CELL DISTRIBUTION WIDTH 15.2 % (9.4-14.8)
[2019-05-17 04:24] LABS: ALANINE AMINOTRANSFERASE 263 U/L (12-78); ALBUMIN 1.9 g/dL (3.4-5.0); ANION GAP 7 mmol/L (5-15); CALCIUM 8.2 mg/dL (8.5-10.1); CHLORIDE 97 mmol/L (98-107); CREATININE 0.55 mg/dL (0.7-1.3)
[2019-05-17 04:39] LABS: ALKALINE PHOSPHATASE 1040 U/L (45-117); BILIRUBIN,TOTAL 9.9 mg/dL (0.2-1.0); TOTAL PROTEIN 5.8 g/dL (6.4-8.2)
[2019-05-17 04:42] LABS: MD YES
[2019-05-17 04:45] LABS: <PLATELET ESTIMATE> ADEQUATE; <PLT MORPHOLOGY> NORMAL PLT MORPH; <RBC MORPHOLOGY> NORMAL; LYMPH#(MANUAL) 0.64 x10^3/uL (1-3.4); LYMPHS% (MANUAL) 10 % (22-44); MONOS#(MANUAL) 0.38 x10^3/uL (0.3-2.7); MONOS% (MANUAL) 6 % (2-9); SEG#(MANUAL) 5.38 x10^3/uL (1.8-6.8); SEGS% (MANUAL) 84 % (42-75)
[2019-05-17 07:04] VITALS: BP 168/84
[2019-05-17] MEDS: METOPROLOL TARTRATE 25 MG TABLET PO SCH ×2 (08:21→19:14)
[2019-05-17] MEDS: INSULIN LISPRO 100 UNITS/ML, PEN SQ-INSULIN SCH ×4 (08:21→22:12)
[2019-05-17] MEDS: INSULIN DEGLUDEC SQ SCH (09:00)
[2019-05-17] MEDS: PANTOPRAZOLE 40 MG IV IVPush SCH (09:00)
[2019-05-17] MEDS ORDERED: FENTANYL PF 100 MCG/2ML IV PRN (09:30)
[2019-05-17] MEDS ORDERED: OXYcodone 5 MG/5 ML ORAL.SOL UDC PO PRN (09:30)
[2019-05-17] MEDS ORDERED: LABETALOL 5MG/ML, 20ML IV PRN (09:30)
[2019-05-17] MEDS ORDERED: PROMETHAZINE 25 MG/ML, 1ML IV PRN (09:30)
[2019-05-17] MEDS ORDERED: HALOPERIDOL 5 MG/ML IV PRN (09:30)
[2019-05-17] MEDS ORDERED: hydrALAzine 20 MG/ML, 1ML IV PRN (09:30)
[2019-05-17] MEDS ORDERED: MEPERIDINE/PF 25MG/ML,1ML IVPush PRN (09:30)
[2019-05-17] MEDS ORDERED: HYDROmorphone 2 MG/ML, 1ML IVPush PRN (09:30)
[2019-05-17] MEDS ORDERED: FENTANYL PF 100 MCG/2ML ONE ×2 (09:36→10:25)
[2019-05-17] MEDS ORDERED: GLYCOPYRROLATE 0.2MG/1ML, 5ML ONE (11:15)
[2019-05-17] MEDS ORDERED: ONDANSETRON 2MG/ML, 2ML ONE (11:15)
[2019-05-17] MEDS ORDERED: DEXAMETHASONE 4 MG/ML, 1ML ONE (11:15)
[2019-05-17] MEDS ORDERED: SUCCINYLCHOLINE 20 MG/ML, 10ML ONE (11:15)
[2019-05-17] MEDS ORDERED: CEFAZOLIN 1,000 MG ONE (11:15)
[2019-05-17] MEDS ORDERED: PROPOFOL 10 MG/ML, 20ML ONE (11:15)
[2019-05-17] MEDS ORDERED: ROCURONIUM 10MG/ML,5ML ONE (11:15)
[2019-05-17] MEDS ORDERED: NEOSTIGMINE 1 MG/ML, 10ML ONE (11:15)
[2019-05-17] MEDS: ERTAPENEM 1 GM in SODIUM CHLORIDE 0.9% 50 ML IV SCH (13:37)
[2019-05-17 15:08] VITALS: BP 119/69
[2019-05-17] MEDS ORDERED: INSULIN LISPRO 100 UNITS/ML, PEN SQ-INSULIN SCH (16:00)
[2019-05-17 19:02] VITALS: BP 145/69
[2019-05-17] MEDS ORDERED: CHOLESTYRAMINE LIGHT 4GM PACKET PO PRN (20:00)
[2019-05-17] MEDS ORDERED: INSULIN GLARGINE 100 UNITS/ML, PEN SQ-INSULIN SCH (21:00)
[2019-05-18 00:53] VITALS: BP 138/64
[2019-05-18] MEDS: SODIUM CHLORIDE 0.9% 1,000 ML IV SCH (03:57)
[2019-05-18 04:06] LABS: MEAN CORPUSCULAR HEMOGLOBIN 31.8 pg (27.5-34.5); MEAN CORPUSCULAR HGB CONC 33.9 g/dL (33.2-36.2); MEAN CORPUSCULAR VOLUME 93.8 fL (81-97); MEAN PLATELET VOLUME 8.3 fL (7.4-10.4); PLATELET COUNT 291 x10^3/uL (130-400); RED BLOOD COUNT 3.45 x10^6/uL (4.38-5.82)
[2019-05-18 04:09] LABS: ALANINE AMINOTRANSFERASE 222 U/L (12-78); ALBUMIN 1.8 g/dL (3.4-5.0); ANION GAP 6 mmol/L (5-15); CHLORIDE 94 mmol/L (98-107)
[2019-05-18 04:21] LABS: MD YES
[2019-05-18 04:23] LABS: <PLATELET ESTIMATE> ADEQUATE; <PLT MORPHOLOGY> NORMAL PLT MORPH; <RBC MORPHOLOGY> NORMAL; ALKALINE PHOSPHATASE 1027 U/L (45-117); BILIRUBIN,TOTAL 10.2 mg/dL (0.2-1.0); LYMPH#(MANUAL) 1.08 x10^3/uL (1-3.4); LYMPHS% (MANUAL) 20 % (22-44); MONOS#(MANUAL) 0.43 x10^3/uL (0.3-2.7); MONOS% (MANUAL) 8 % (2-9); SEG#(MANUAL) 3.89 x10^3/uL (1.8-6.8); SEGS% (MANUAL) 72 % (42-75); TOTAL PROTEIN 5.6 g/dL (6.4-8.2)
[2019-05-18 05:40] VITALS: BP 137/67
[2019-05-18] MEDS: METOPROLOL TARTRATE 25 MG TABLET PO SCH ×3 (05:41→17:43)
[2019-05-18] MEDS: INSULIN LISPRO 100 UNITS/ML, PEN SQ-INSULIN SCH ×7 (07:00→20:26)
[2019-05-18 08:41] VITALS: BP 120/68
[2019-05-18] MEDS: INSULIN DEGLUDEC SQ SCH (08:55)
[2019-05-18] MEDS: PANTOPRAZOLE 40 MG IV IVPush SCH (08:56)
[2019-05-18] MEDS ORDERED: INSULIN GLARGINE 100 UNITS/ML, PEN SQ-INSULIN SCH ×2 (09:00→21:00)
[2019-05-18] MEDS ORDERED: LIDOCAINE 1%, 20ML ONE (09:58)
[2019-05-18] MEDS ORDERED: FLUMAZENIL 0.1 MG/1 ML, 5ML ONE (10:17)
[2019-05-18] MEDS ORDERED: MIDAZOLAM 1 MG/ML, 5ML ONE (10:17)
[2019-05-18] MEDS ORDERED: NALOXONE 1 MG/ML, 2ML ONE (10:18)
[2019-05-18] MEDS ORDERED: FENTANYL PF 100 MCG/2ML ONE (10:18)
[2019-05-18 11:33] VITALS: BP 130/63
[2019-05-18] MEDS: ERTAPENEM 1 GM in SODIUM CHLORIDE 0.9% 50 ML IV SCH (13:08)
[2019-05-18 13:54] VITALS: BP 152/70
[2019-05-18] MEDS: OXYcodone IR 5MG TABLET PO PRN (16:20)
[2019-05-18 19:38] VITALS: BP 124/65
[2019-05-19 01:07] VITALS: BP 114/66
[2019-05-19] MEDS: SODIUM CHLORIDE 0.9% 1,000 ML IV SCH (02:09)
[2019-05-19] MEDS: OXYcodone IR 5MG TABLET PO PRN ×2 (02:36→22:10)
[2019-05-19] MEDS: METOPROLOL TARTRATE 25 MG TABLET PO SCH ×2 (04:13→17:08)
[2019-05-19] MEDS: INSULIN LISPRO 100 UNITS/ML, PEN SQ-INSULIN SCH ×7 (07:28→20:57)
[2019-05-19 08:10] VITALS: BP 131/65
[2019-05-19] MEDS: PANTOPRAZOLE 40 MG IV IVPush SCH (09:28)
[2019-05-19] MEDS: INSULIN GLARGINE 100 UNITS/ML, PEN SQ-INSULIN SCH ×2 (09:29→20:57)
[2019-05-19 10:14] LABS: ALANINE AMINOTRANSFERASE 253 U/L (12-78); ALBUMIN 2.3 g/dL (3.4-5.0); ANION GAP 8 mmol/L (5-15); CALCIUM 8.7 mg/dL (8.5-10.1); CHLORIDE 99 mmol/L (98-107); CREATININE 0.55 mg/dL (0.7-1.3)
[2019-05-19 10:16] LABS: BILIRUBIN,TOTAL 6.4 mg/dL (0.2-1.0); TOTAL PROTEIN 7.1 g/dL (6.4-8.2)
[2019-05-19 10:42] LABS: ALKALINE PHOSPHATASE 1152 U/L (45-117)
[2019-05-19 12:44] VITALS: BP 146/70
[2019-05-19] MEDS: ERTAPENEM 1 GM in SODIUM CHLORIDE 0.9% 50 ML IV SCH (13:20)
[2019-05-19 18:33] VITALS: BP 115/56
[2019-05-20 01:55] VITALS: BP 119/64
[2019-05-20 03:35] LABS: MEAN CORPUSCULAR HEMOGLOBIN 31.7 pg (27.5-34.5); MEAN CORPUSCULAR HGB CONC 33.6 g/dL (33.2-36.2); MEAN CORPUSCULAR VOLUME 94.3 fL (81-97); MEAN PLATELET VOLUME 8.1 fL (7.4-10.4); PLATELET COUNT 318 x10^3/uL (130-400); RED BLOOD COUNT 3.37 x10^6/uL (4.38-5.82); RED CELL DISTRIBUTION WIDTH 14.6 % (9.4-14.8)
[2019-05-20 03:44] LABS: ALANINE AMINOTRANSFERASE 160 U/L (12-78); ALBUMIN 1.8 g/dL (3.4-5.0); ANION GAP 4 mmol/L (5-15); CALCIUM 8.1 mg/dL (8.5-10.1); CHLORIDE 101 mmol/L (98-107)
[2019-05-20 03:46] LABS: ALKALINE PHOSPHATASE 838 U/L (45-117); BILIRUBIN,TOTAL 4.2 mg/dL (0.2-1.0)
[2019-05-20 03:51] LABS: MD YES
[2019-05-20 03:52] LABS: BAND#(MANUAL) 0.06 x10^3/uL; BANDS%(MANUAL) 1 % (0-7); LYMPH#(MANUAL) 1.01 x10^3/uL (1-3.4); LYMPHS% (MANUAL) 16 % (22-44); MONOS#(MANUAL) 0.44 x10^3/uL (0.3-2.7); MONOS% (MANUAL) 7 % (2-9); MYELOCYTES# (MANUAL) 0.06 x10^3/uL (0-0); MYELOCYTES% (MANUAL) 1 % (0-0); SEG#(MANUAL) 4.73 x10^3/uL (1.8-6.8); SEGS% (MANUAL) 75 % (42-75); TARGET CELLS 1+
[2019-05-20 03:53] LABS: <PLATELET ESTIMATE> ADEQUATE; <PLT MORPHOLOGY> NORMAL PLT MORPH
[2019-05-20] MEDS: METOPROLOL TARTRATE 25 MG TABLET PO SCH (05:42)
[2019-05-20] MEDS: INSULIN LISPRO 100 UNITS/ML, PEN SQ-INSULIN SCH ×2 (07:11→11:13)
[2019-05-20 07:27] VITALS: BP 110/64
[2019-05-20] MEDS: PANTOPRAZOLE 40 MG IV IVPush SCH (08:24)
[2019-05-20] MEDS: SODIUM CHLORIDE 0.9% 1,000 ML IV SCH (08:24)
[2019-05-20] MEDS ORDERED: INSULIN GLARGINE 100 UNITS/ML, PEN SQ-INSULIN SCH (09:00)
[2019-05-20] MEDS ORDERED: METO25TA35 PO (10:54)
== END 2019-05-20 16:54 | disposition home or self-care (01) | DRG 919 ==
LOC: ED 15:53 → 4NW 16:52 → DCLOUNGE 05-20 16:15
PROVIDERS: ADMIT Internal Medicine Infectious Disease; ATTEND Hospitalist
PROC: 0FPD8DZ Removal of Intraluminal Device from Pancreatic Duct, Via Natural or Artificial Opening Endoscopic (ICD-10-PCS; principal; 2019-05-17 10:30)
PROC: 0F9930Z Drainage of Common Bile Duct with Drainage Device, Percutaneous Approach (ICD-10-PCS; 2019-05-18)
PROC: BF141ZZ Fluoroscopy of Gallbladder, Bile Ducts and Pancreatic Ducts using Low Osmolar Contrast (ICD-10-PCS; 2019-05-18)
DX: T85.590A Other mechanical complication of bile duct prosthesis, initial encounter (principal); K83.1 Obstruction of bile duct; C25.9 Malignant neoplasm of pancreas, unspecified; E44.0 Moderate protein-calorie malnutrition; C78.7 Secondary malignant neoplasm of liver and intrahepatic bile duct; K31.5 Obstruction of duodenum; Z68.1 Body mass index [BMI] 19.9 or less, adult; D64.9 Anemia, unspecified; E11.649 Type 2 diabetes mellitus with hypoglycemia without coma; E78.00 Pure hypercholesterolemia, unspecified; E78.5 Hyperlipidemia, unspecified; E88.81 Metabolic syndrome and other insulin resistance; G89.29 Other chronic pain; I10 Essential (primary) hypertension; K21.9 Gastro-esophageal reflux disease without esophagitis; L29.9 Pruritus, unspecified; Y73.2 Prosthetic and other implants, materials and accessory gastroenterology and urology devices associated with adverse incidents; Y92.89 Other specified places as the place of occurrence of the external cause
CPT/HCPCS: 36415; 47534; 74022; 74177; 74328; 76700; 80053; 81003; 82962; 83036; 83690; 85025; 85610; 85730; 99156; 99157; G0378; J0690; J1100; J1335; J2250; J2405; J2704; J2710; J3010; Q9967; C1729; C1769; C9113; J0330; J1815; J2310; J7030